=== PATIENT | male | born 1980 | race African-American/Black ===

== ENCOUNTER → 2016-11-18 | Emergency (ER) | payer SELFPAY ==
[2016-11-18 20:35] LABS: BASOPHILS 0.2 % (0.0-2.0); EOSINOPHILS 1.2 % (0-7); HEMATOCRIT 33.2 % (42.0-54.0); HEMOGLOBIN 11.4 g/dL (13.5-17.5); IMMATURE GRANULOCYTES 0.3 % (0-5); LYMPHOCYTES 21.8 % (15-50); MCH 29.2 pg (26.0-34.0); MCHC 34.3 g/dL (31.0-37.0); MCV 84.9 fL (80.0-100.0); MEAN PLATELET VOLUME 10.2 fL (7.4-10.4); MONOCYTES 5.8 % (2-11); NEUTROPHILS 70.7 % (40-80); PLATELET COUNT 299 10x3/uL (130-400); RBC 3.91 10x6/uL (4.20-6.10); RDW 12.9 % (11.5-14.5); WBC 11.6 10x3/uL (4.8-10.8)
[2016-11-18 20:52] LABS: ALBUMIN 3.4 g/dL (3.4-5.0); ALKALINE PHOSPHATASE 95 U/L (46-116); ALT (SGPT) 29 U/L (10-68); BILIRUBIN - TOTAL 0.26 mg/dL (0.2-1.3); CALC OSMOLALITY 290 mosm/kg (275-300); CALCIUM 9.2 mg/dL (8.5-10.1); CARBON DIOXIDE 29.9 mmol/L (21.0-32.0); CHLORIDE - SERUM 100 mmol/L (98-107); CREATININE - SERUM 1.2 mg/dL (0.6-1.3); GLUCOSE 379 mg/dL (74-106); POTASSIUM - SERUM 3.9 mmol/L (3.5-5.1); PROTEIN - SERUM 7.7 g/dL (6.4-8.2); SODIUM 137 mmol/L (136-145); UREA NITROGEN 15 mg/dL (7-18); eGFR NON AFRICAN AMERICAN 72 mL/min (90-120)
[2016-11-18 20:56] LABS: TROPONIN-I < 0.017 ng/mL (0.000-0.060)
== END | disposition home or self-care (01) ==
LOC: D.ER 19:43
PROVIDERS: Family Medicine
DX: Z02.9 Encounter for administrative examinations, unspecified (principal)

== ENCOUNTER 2019-02-23 20:54 | Inpatient (IN) | payer MEDICAID ==
[2019-02-23] MEDS ORDERED: HUMULIN 70100 UNIT/1 SC (21:03)
[2019-02-23 21:26] LABS: BASOPHILS 0.3 % (0-2); EOSINOPHILS 0.9 % (0-7); HEMATOCRIT 37.9 % (42.0-54.0); HEMOGLOBIN 13.6 g/dL (13.5-17.5); IMMATURE GRANULOCYTES 0.6 % (0-5); LYMPHOCYTES 27.9 % (15-50); MCH 29.5 pg (26.0-34.0); MCHC 35.9 g/dL (31.0-37.0); MCV 82.2 fL (80.0-100.0); MEAN PLATELET VOLUME 10.3 fL (7.4-10.4); MONOCYTES 7.4 % (2-11); NEUTROPHILS 62.9 % (40-80); PLATELET COUNT 271 10x3/uL (130-400); RBC 4.61 10x6/uL (4.20-6.10); RDW 12.1 % (11.5-14.5); WBC 8.6 10x3/uL (4.8-10.8)
[2019-02-23 21:37] LABS: APTT 23.9 SECONDS (22.8-39.4); INR 1.07 (0.85-1.17); PROTIME 13.4 SECONDS (11.6-15.0)
[2019-02-23 21:42] LABS: ALBUMIN 3.9 g/dL (3.4-5.0); ALKALINE PHOSPHATASE 90 U/L (46-116); ALT (SGPT) 28 U/L (10-68); BILIRUBIN - TOTAL 0.71 mg/dL (0.2-1.3); CALC OSMOLALITY 285 mosm/kg (275-300); CALCIUM 9.3 mg/dL (8.5-10.1); CARBON DIOXIDE 23.1 mmol/L (21.0-32.0); CHLORIDE - SERUM 96 mmol/L (98-107); CREATININE - SERUM 3.8 mg/dL (0.6-1.3); POTASSIUM - SERUM 4.2 mmol/L (3.5-5.1); PROTEIN - SERUM 8.8 g/dL (6.4-8.2); SODIUM 131 mmol/L (136-145); UREA NITROGEN 42 mg/dL (7-18); eGFR NON AFRICAN AMERICAN 19 mL/min (90-120)
[2019-02-23 21:43] LABS: GLUCOSE 318 mg/dL (74-106)
[2019-02-23 21:56] LABS: CKMB 0.7 U/L (0.0-3.6); CREATINE KINASE 154 UL (21-232); MAGNESIUM - SERUM 2.4 mg/dL (1.8-2.4)
[2019-02-23 22:01] LABS: TROPONIN-I < 0.017 ng/mL (0.000-0.060)
[2019-02-23] MEDS ORDERED: GABAPENTIN100 MG PO (23:53)
[2019-02-24] VITALS (8 sets, daily range): BP systolic 114–138; BP diastolic 70–91; BMI 30.8
--- NOTE | 2019-02-24 00:31 | NUR ---
PT TO FLOOR VIA WHEELCHAIR. PT A/O, UP AB SUSU. PT DENIES PAIN AT THIS TIME. IV TO R FA PATENT, DRSG C/D/I, NS @ 200 CC/HR. RM AIR, BREATHING EVEN AND UNLABORED. NITRO PASTE TO L CHEST. TELE APPLIED, [address] ST. GAVE PT A CLEAN URINAL AND INFORMED HIM WHEN HE WENT TO THE BATHROOM I NEEDED A URINE SAMPLE. ALSO INFORMED PT HE WILL REMAIN NPO AFTER MIDNIGHT UNTIL THE MANAGER TRADING SEES HIM TOMORROW. PT AGREES WITH POC. NO FURTHER CONCERNS AT THIS TIME. FALL PRECAUTIONS IN PLACE. BED LOWERED AND LOCKED. CL IN REACH. WILL CTM.
[2019-02-24 05:33] LABS: BASOPHILS 0.4 % (0-2); EOSINOPHILS 1.7 % (0-7); HEMATOCRIT 35.2 % (42.0-54.0); HEMOGLOBIN 12.5 g/dL (13.5-17.5); IMMATURE GRANULOCYTES 0.3 % (0-5); LYMPHOCYTES 39.5 % (15-50); MCH 29.2 pg (26.0-34.0); MCHC 35.5 g/dL (31.0-37.0); MCV 82.2 fL (80.0-100.0); MEAN PLATELET VOLUME 10.7 fL (7.4-10.4); MONOCYTES 7.5 % (2-11); NEUTROPHILS 50.6 % (40-80); PLATELET COUNT 261 10x3/uL (130-400); RBC 4.28 10x6/uL (4.20-6.10); RDW 12.2 % (11.5-14.5); WBC 7.7 10x3/uL (4.8-10.8)
[2019-02-24 06:18] LABS: ALBUMIN 3.4 g/dL (3.4-5.0); ALKALINE PHOSPHATASE 86 U/L (46-116); ALT (SGPT) 27 U/L (10-68); BILIRUBIN - TOTAL 0.34 mg/dL (0.2-1.3); CALC OSMOLALITY 292 mosm/kg (275-300); CALCIUM 8.8 mg/dL (8.5-10.1); CARBON DIOXIDE 25.5 mmol/L (21.0-32.0); CHLORIDE - SERUM 99 mmol/L (98-107); CKMB 0.6 U/L (0.0-3.6); CREATINE KINASE 127 UL (21-232); CREATININE - SERUM 2.9 mg/dL (0.6-1.3); GLUCOSE 298 mg/dL (74-106); MAGNESIUM - SERUM 2.5 mg/dL (1.8-2.4); PHOSPHOROUS 6.9 mg/dL (2.5-4.9); POTASSIUM - SERUM 4.5 mmol/L (3.5-5.1); PROTEIN - SERUM 7.5 g/dL (6.4-8.2); SODIUM 135 mmol/L (136-145); TROPONIN-I < 0.017 ng/mL (0.000-0.060); UREA NITROGEN 45 mg/dL (7-18); eGFR NON AFRICAN AMERICAN 26 mL/min (90-120)
[2019-02-24 07:41] LABS: UDS - AMPHET NEGATIVE QUAL (NEGATIVE); UDS - BARB NEGATIVE QUAL (NEGATIVE); UDS - BENZO NEGATIVE QUAL (NEGATIVE); UDS - COCAINE NEGATIVE QUAL (NEGATIVE); UDS - OPIATE NEGATIVE QUAL (NEGATIVE); UDS - PCP NEGATIVE QUAL (NEGATIVE); UDS - THC NEGATIVE QUAL (NEGATIVE)
[2019-02-24 07:55] LABS: APPEARANCE HAZY (CLEAR); COLOR YELLOW (YELLOW)
[2019-02-24 07:57] LABS: BACTERIA MODERATE /hpf (NONE SEEN); BILIRUBIN NEGATIVE (NEGATIVE); CALCIUM OXALATE CRYSTALS 0-5 /hpf (NONE SEEN); EPITHELIAL CELLS 0-5 /hpf (0-5); GLUCOSE 250 mg/dL (NEGATIVE); KETONE NEGATIVE (NEGATIVE); MUCUS <1+ /lpf (NONE SEEN); NITRITE NEGATIVE (NEGATIVE); PROTEIN TRACE mg/dL (NEGATIVE); RED CELLS - URINE 0-5 /hpf (0-5); UROBILINOGEN NORMAL (NORMAL); WHITE CELLS - URINE OCC /hpf (0-5)
[2019-02-24 12:21] LABS: CKMB 0.5 U/L (0.0-3.6); CREATINE KINASE 125 UL (21-232); TROPONIN-I < 0.017 ng/mL (0.000-0.060)
--- NOTE | 2019-02-24 17:50 | NUR ---
ALERT AND ORIENTED X4. RESTING IN BED. URINATES 700ml IN URINAL. INITIATE BLADDER SCAN. SCANNER RESULT SHOW 31mL IN BLADDER 10 MINUTES AFTER URINATING. DENIES SOB OR PAIN. DENIES ANY NEEDS AT THIS TIME. CONTINUE PLAN OF CARE AND SAFETY PRECAUTIONS.
--- NOTE | 2019-02-24 20:15 | NUR ---
BED LOW AND LOCKED CALL L;IGHT IN REACH PT DENIES ANY NEEDS AT THIS TIME. NO CHEST PAIN LCTA SKIN WARM AND DRY AND PT AMBULATING IN ROOM
[2019-02-25] VITALS: BP 137/90
--- NOTE | 2019-02-25 01:51 | NUR ---
I have reviewed this patient and I concur with the Shift Assessment completed by the Licensed Practical Nurse today this shift.
[2019-02-25 04:00] VITALS: BP 124/85
[2019-02-25 06:03] LABS: BASOPHILS 0.4 % (0-2); EOSINOPHILS 2.2 % (0-7); HEMATOCRIT 32.7 % (42.0-54.0); HEMOGLOBIN 11.3 g/dL (13.5-17.5); IMMATURE GRANULOCYTES 0.2 % (0-5); LYMPHOCYTES 39.6 % (15-50); MCH 28.5 pg (26.0-34.0); MCHC 34.6 g/dL (31.0-37.0); MCV 82.6 fL (80.0-100.0); MEAN PLATELET VOLUME 10.4 fL (7.4-10.4); NEUTROPHILS 48.6 % (40-80); PLATELET COUNT 233 10x3/uL (130-400); RBC 3.96 10x6/uL (4.20-6.10)
[2019-02-25 06:17] LABS: ANION GAP 10.7 mmol/L (8-16); C-REACTIVE PROTEIN 0.4 mg/dL (0.0-0.9); CALCIUM 8.1 mg/dL (8.5-10.1); CARBON DIOXIDE 27.8 mmol/L (21.0-32.0); CREATININE - SERUM 1.3 mg/dL (0.6-1.3); MAGNESIUM - SERUM 2.5 mg/dL (1.8-2.4); PHOSPHOROUS 4.1 mg/dL (2.5-4.9); POTASSIUM - SERUM 4.5 mmol/L (3.5-5.1)
[2019-02-25 06:23] LABS: WBC 5.6 10x3/uL (4.8-10.8)
--- NOTE | 2019-02-25 07:40 | NUR ---
A/A/OX4. DENIES ANY PAIN OR DISCOMFORT AND NO REQUESTS VOICED AT THIS TIME. PT INFORMED TO CALL PRIOR TO NEEDING TO VOID SO BLADDER SCAN CAN BE DONE AND PT VERBALIZES UNDERSTANDING. ASSESSMENT COMPLETED AND WILL CONTINUE POC. IV PATENT TO RIGHT FOREARM WITHOUT REDNESS OR EDEMA AT SITE.
[2019-02-25 07:54] LABS: ERYTHROCYTE SEDIMENTATION RATE 26 mm/hr (0-15)
[2019-02-25 09:40] VITALS: BP 168/98
[2019-02-25] MEDS ORDERED: LEVOFLOXACIN500 MG PO (09:56)
[2019-02-25] MEDS ORDERED: ASPIRIN325 MG PO (09:56)
--- NOTE | 2019-02-25 10:20 | NUR ---
BLADDER SCAN DONE PRE AND POST VOID. PRE [id number] POST 0 CC
[2019-02-25] MEDS ORDERED: NOVOLIN 70/30 110 ML SC (11:10)
--- NOTE | 2019-02-25 12:10 | NUR ---
DISCHARGE INSTRUCTIONS REVIEWED WITH PT AND VERBALIZES UNDERSTANDING WITH NO QUESTIONS. LEFT FLOOR AMBULATORY AT HIS REQUEST. ALL PERSONAL BELONGINGS WITH PT AND ESCORTED TO ER EXIT TO CATCH THE BUS. IV REMOVED WITH CATH TIP INTACT.
--- NOTE | 2019-02-25 13:17 | MORECARE ---
CASE MANAGEMENT DISCHARGE SUMMARY PATIENT: AIDE MASTERS UNIT: [id number] ADM DATE: 02/23/19 AGE: 38 : 78 SEX: M ROOM/BED: D.2110 AUTHOR: OPAL CARTWRIGHT PHYSICIAN: REFERRING PHYSICIAN: ALLEGRA KENYON MD DATE OF SERVICE: 02/25/19 Discharge Plan Patient Name: AIDE MASTERS Facility: [facility]:[place] : 1980 Planned Disposition: Home Anticipated Discharge Date: 02/25/19 Discharge Date: 02/25/2019 Expected LOS: 2 Initial Reviewer: [email or web address] Initial Review Date: 02/24/2019 Generated: 02/25/19 2:17 pm Patient Name: AIDE MASTERS Page 27585 at 1317 All edits/amendments must be made on the electronic document DICTATION DATE: 02/25/19 1317 GRID CASTING MACHINE OPERATOR HELPER: TRISH 02/25/19 1317 RPT#: [id number] DC DATE:02/25/19 STATUS: DIS IN [facility] [address] [facility] [place] [address] END OF REPORT
--- NOTE | 2019-02-25 13:27 | MORECARE ---
CASE MANAGEMENT DISCHARGE SUMMARY PATIENT: AIDE MASTERS UNIT: [id number] ADM DATE: 02/23/19 AGE: 38 : 78 SEX: M ROOM/BED: D.2110 AUTHOR: CHAY,DOC PHYSICIAN: REFERRING PHYSICIAN: ALLEGRA KENYON MD DATE OF SERVICE: 02/25/19 Discharge Plan Patient Name: AIDE MASTERS Facility: [facility]:[place] : 1980 Planned Disposition: Home Anticipated Discharge Date: 02/25/19 Discharge Date: 02/25/2019 Expected LOS: 2 Initial Reviewer: [email or web address] Initial Review Date: 02/24/2019 Generated: 02/25/19 2:27 pm Comments DCP- Discharge Planning Updated by [email or web address]: Monroe Lentz on 02/25/19 12:[address] Patient Name: AIDE MASTERS Admission Status: ER Accout number: [id number] Admission Date: 02-23-2019 : 1980 Admission Diagnosis: Attending: ALLEGRA KENYON Current LOS: 2 Anticipated DC Date: 02-25-2019 Planned Disposition: Home Primary Insurance: MEDICAID [place] Discharge Planning Comments: CM MET WITH PT IN ROOM TO DISCUSS DISCHARGE NEEDS AND PLANNING. PT REPORTS HE WAS LIVING IN AN APARTMENT BUT HAS BEEN EVICTED AND IS NOW HOMELESS. PT ASKED ABOUT LOCAL HOMELESS RESIDENTIAL INFORMATION. CM PROVIDED PT WITH [facility] INFORMATION, PT REFUSED AND REPORTS ALREADY HAVING THAT INFORMATION. CM ADVISED THERE WERE NO OTHER LOCAL SHELTERS. PT WILL STAY WITH A FRIEND UNTIL HE IS ABLE TO GET A PLACE OF HIS OWN. PT HAS NO TRANSPORTATION HOME, ASKED FOR BUS PASS, CM PROVIDED ONE. PT REPORTS HAVING A GLUCOMETER WITH NO PROVIDER PREFERNCE. PT HAS NO SERVICES ASSISTING IN THE HOME. CM DISCUSSED AVAILABILITY OF HOME HEALTH, REHAB SERVICES AND MEDICAL EQUIPMENT. PT DENIES DISCHARGE NEEDS. CM PROVIDED PT WITH [facility] INFORMATION. VOCATIONAL TRAINING TEACHER NURSE NOTIFIED. Jute Bag Clipper: Monroe Lentz DCPIA - Discharge Planning Initial Assessment Updated by [email or web address]: Monroe Lentz on 02/25/19 1:19 pm * Is the patient Alert and Oriented? Yes * How many steps to enter\exit or inside your home? NONE * PCP NONE [facility] REFERRED * Pharmacy [facility] * Preadmission Environment Home with Family * ADLs Independent * Equipment Glucometer * Other Equipment NO MEDICAL EQUIPMENT PROVIDER PREFERENCE * List name and contact numbers for known caregivers / representatives who currently or will assist patient after discharge: MONA MASTERS, EX SPOUSE, * Verbal permission to speak to the caregivers and representatives has been obtained from the patient. N/A * Community resources currently utilized None * Please name any agencies selected above. NONE * Additional services required to return to the preadmission environment? No * Can the patient safely return to the preadmission environment? Yes * Has this patient been hospitalized within the prior 30 days at any hospital? No Last DP export: 02/25/19 12:17 pm Patient Name: AIDE MASTERS Page [phone] at 1327 All edits/amendments must be made on the electronic document DICTATION DATE: 02/25/19 1326 SOUND MIXER: TRISH 02/25/19 1326 RPT#: [id number] DC DATE:02/25/19 STATUS: DIS IN [facility] [address] [place] [address] END OF REPORT
== END 2019-02-25 12:30 | disposition home or self-care (01) | DRG 311 ==
LOC: D.ER 20:54 → D.M2 22:55
PROVIDERS: Family Medicine; ADMIT Internal Medicine Nephrology; ATTEND Internal Medicine Nephrology
DX: I20.0 Unstable angina (principal); N17.9 Acute kidney failure, unspecified; E87.1 Hypo-osmolality and hyponatremia; F17.213 Nicotine dependence, cigarettes, with withdrawal; E11.40 Type 2 diabetes mellitus with diabetic neuropathy, unspecified; I10 Essential (primary) hypertension; D64.9 Anemia, unspecified; K21.9 Gastro-esophageal reflux disease without esophagitis